=== PATIENT | female | born 1995 | race Caucasian/White ===

== ENCOUNTER 2025-08-08 01:57 | Emergency (ER) | payer MEDICAID, OTHER ==
[~2025-08-08] VITALS: Ht 165.1 cm; Wt 81.8 kg
[2025-08-08 02:13] VITALS: TEMP 98.3
--- NOTE | 2025-08-08 03:00 | Physician Documentation ---
History of Present Illness ~ Chief Complaint: 5150 Stated Complaint: 5150 Time Seen by MD: 02:47 HPI 29-year-old female presenting by police on a 5150 hold Per police, the patient was walking in the middle of the road, possibly making thoughts of self-harm. She was possibly intoxicated. Here in the ED, the patient is yelling and poorly cooperative. She does admit to having some alcohol tonight. She denies any drug use. She denies any suicidal ideation or attempt. She is homeless. She otherwise does not cooperate with history questions. Medication Reconciliation Allergies: Coded Allergies: Sulfa (Sulfonamide Antibiotics) (Unverified Allergy, Unknown, 12/13/15) Past Medical History Past Medical History: Asthma Alcohol Use: None Drug Use: none Review of Systems Unable to obtain complete ROS: other (The patient does not cooperate, possibly intoxicated) Physical Exam Vital Signs: Temperature: 98.3, Source: Temporal, Heart Rate: 125, Respiratory Rate: 20, BP: 158/102, Pulse Oximetry: 97, Weight: 81.820 Oxygen Flow Rate: 0 Physical Exam General: This is a young female, with a labile affect, yelling intermittently HEENT: Atraumatic, tearful, oropharynx is moist Heart: Tachycardic, appears regular Lungs: normal work of breathing, normal oxygen saturation on room air Neuro: Alert and oriented Psychiatric: Labile affect, intermittently yelling, denies suicidal ideation Progress Results/Orders Results/Orders Orders - LARS NEWSOME MD Med Rec (08/08/25 03:02) 1799.11 (08/08/25 03:02) Close Observation Level (08/08/25 03:02) Covid19 Binax Poc Result Entry (08/08/25 03:02) Substance Use Navigator (08/08/25 03:02) Completed Orders - LARS NEWSOME MD Cbc/Diff (08/08/25 03:02) Urinalysis (08/08/25 03:02) Hcg, Ur Ql (08/08/25 03:02) Drug Screen, Urine (08/08/25 03:02) Ethanol (08/08/25 03:02) TSH (08/08/25 03:02) BMP (08/08/25 03:02) Regular Diet (08/08/25 Breakfast) Diphenhydramine Inj (Benadryl Inj.) (08/08/25 03:02) Midazolam 1 Mg/Ml 2ml Inj. (Versed 1 Mg/ (08/08/25 03:02) Haloperidol Lact. (Haldol) (08/08/25 03:02) Midazolam 1 Mg/Ml 2ml Inj. (Versed 1 Mg/ (08/08/25 03:07) Store Meds In Pharmacy (Store Meds In Ph (08/08/25 06:50) Vital Signs 08/08/25 08/08/25 08/08/25 08/08/25 02:13 03:19 05:34 11:09 Temp 98.3 Pulse 125 64 Resp 20 22 20 18 B/P (MAP) 158/102 105/79 (88) Pulse Ox 97 94 O2 Flow Rate 0 0 08/08/25 13:48 Pulse 76 Resp 18 B/P (MAP) 114/75 Pulse Ox 94 Laboratory Tests Test 08/08/25 02:09 08/08/25 02:18 08/08/25 02:24 White Blood Count 9.2 Red Blood Count 4.64 Hemoglobin 14.4 Hematocrit 42.8 Mean Corpuscular Volume 92.1 Mean Corpuscular Hemoglobin 30.9 Mean Corpuscular Hemoglobin Concent 33.6 Red Cell Distribution Width 14.7 H Platelet Count 388 Mean Platelet Volume 7.1 L Neutrophils (%) (Auto) 66.4 Lymphocytes (%) (Auto) 25.3 Monocytes (%) (Auto) 5.0 Eosinophils (%) (Auto) 2.6 Basophils (%) (Auto) 0.7 Neutrophils # (Auto) 6.1 Lymphocytes # (Auto) 2.3 Monocytes # (Auto) 0.5 Eosinophils # (Auto) 0.2 Basophils # (Auto) 0.1 CBC Comment Sodium Level 145 Potassium Level 3.5 Chloride Level 109 H Carbon Dioxide Level 23.2 L Anion Gap 13 Blood Urea Nitrogen 10 Creatinine 0.86 Estimated GFR/1.73 m2 77 BUN/Creatinine Ratio 11.6 Glucose Level 99 Calcium Level 9.0 Albumin 4.3 Thyroid Stimulating Hormone (TSH) 1.95 Chemistry Comments Ethyl Alcohol Level 204 H SARS-CoV-2 Antigen (Rapid) Negative Urine Specimen Description Voided Urine Color Yellow Urine Clarity Clear Urine pH 5.5 Urine Specific Doran <=1.005 Urine Protein Negative Urine Glucose (UA) Negative Urine Ketones Negative Urine Occult Blood Negative Urine Nitrite Negative Urine Bilirubin Negative Urine Urobilinogen 0.2 Urine Leukocyte Esterase Negative Volume Urine Centrifuged 10 ml Urine HCG, Qualitative Negative Urine Comment Urine Opiates Screen Negative Urine Methadone Screen Negative Urine Fentanyl Screen Negative Urine Barbiturates Screen Negative Urine Phencyclidine Screen Negative Urine Amphetamines Screen Negative Urine Benzodiazepines Screen Negative Urine Cocaine Screen Negative Urine Cannabinoids Screen Positive Drug Screen Comment Re-Evaluation Re-Evaluation : Re-Evaluation Time: 13:19 Progress Pt has been evaluated by the mental health team. She was originally making suicidal statements while intoxicated but by their evaluation she no longer is suicidal and is safe for discharge from a mental health standpoint. She is being connected to various mental health services as an outpatient, including rehab through [facility] Medical Decision Making Additional information obtaine: old records Findings Reviewed previous ER visits. No history of psychiatric illness in the chart Differential Dx:Considerations: Include: Alcohol abuse, Anxiety, Bipolar disorder, Depression, Substance abuse, Suicidal Assessment The patient presents on a 5150 hold, with possible intoxication and suicidal gesture. At time of my evaluation, she is somewhat agitated and upset, does not cooperate with much of my history or exam. She attempted to elope multiple times. Eventually she was given IM medications for agitated delirium, after which she did calm down and was more cooperative and then finally slept. Mental screening labs are unremarkable except for a significantly elevated alcohol level as suspected. No evidence of a dangerous medical or surgical emergency at this time. The patient is medically cleared for mental health evaluation once she is sober. Departure Time of Disposition: 13:20 Disposition: 01 HOME / SELF CARE / HOMELESS Impression: Primary Impression: Agitation Additional Impression: Alcoholic intoxication Qualified Codes: F10.920 - Alcohol use, unspecified with intoxication, un complicated Condition: Improved Discharge Instructions: Alcohol Intoxication Additional Instructions: Please follow any recommendations given to you by the mental health team. Return to the emergency department if you feel suicidal or any other concerns. Referrals: NO PRIMARY CARE PROVIDER (PCP) Education Educated: Patient Educated regarding: need for follow up Signature Scribe Signature: na Attestation: LARS Machado MD Aug 08, 2025 03:00 BJ ANTHONY MD Aug 08, 2025 13:20
[2025-08-08] MEDS ORDERED: midazolam 1 mg/ML 2ml injection IV STA (03:02)
[2025-08-08 03:16] LABS: LEUKOCYTE ESTERASE ,URINE NEGATIVE (Neg); NITRITES, URINE NEGATIVE (Neg); OCCULT BLOOD,URINE NEGATIVE (Neg)
[2025-08-08 03:17] LABS: URINE HCG NEGATIVE (NEG)
[2025-08-08 03:18] LABS: UA COLLECTION TYPE VOIDED
[2025-08-08] MEDS: haloperidol lactate 5mg/ml inj IM STA (03:19)
[2025-08-08] MEDS: midazolam 1 mg/ML 2ml injection IM STA (03:19)
[2025-08-08 03:38] LABS: URINE AMPHETAMINE SCREEN NEGATIVE (Neg); URINE BARBITUATE SCREEN NEGATIVE (Neg); URINE BENZODIAZEPINES SCREEN NEGATIVE (Neg); URINE CANNABINOID SCREEN POSITIVE (Neg); URINE COCAINE SCREEN NEGATIVE (Neg); URINE METHADONE SCREEN NEGATIVE (Neg); URINE OPIATE SCREEN NEGATIVE (Neg); URINE PHENCYCLIDINE SCREEN NEGATIVE (Neg)
[2025-08-08 04:43] LABS: MEAN PLATELET VOLUME 7.1 FL (7.4-10.4); RED CELL DISTRIBUTION WIDTH 14.7 % (11.5-14.5)
[2025-08-08 04:59] LABS: CREATININE 0.86 MG/DL (0.40-0.90); ETHANOL 204 MG/DL (<10); TOTAL CARBON DIOXIDE 23.2 MMOL/L (24-32); eCRCL 86 ML/MIN; eGFR 77 ML/MIN
[2025-08-08 13:48] VITALS: BP 114/75; PULSE 76; RESP 18; O2SAT 94
== END 2025-08-08 13:51 | disposition home or self-care (01) ==
LOC: ER 01:57
DX: F10.129 Alcohol abuse with intoxication, unspecified (principal); R41.0 Disorientation, unspecified; J45.909 Unspecified asthma, uncomplicated; Z88.2 Allergy status to sulfonamides; Z59.00 Homelessness unspecified; Y90.9 Presence of alcohol in blood, level not specified; Z20.822 Contact with and (suspected) exposure to COVID-19
CPT/HCPCS: 36415; 80048; 80305; 80320; 81003; 81025; 84443; 85025; 87811; 96372; 99285; J1200; J1630; J2250

== ENCOUNTER 2025-08-16 01:46 | Emergency (ER) | payer MEDICAID ==
[~2025-08-16] VITALS: Ht 157.5 cm; Wt 73.2 kg
--- NOTE | 2025-08-16 02:33 | Physician Documentation ---
History of Present Illness ~ Chief Complaint: Laceration Stated Complaint: FINGER LAC Time Seen by MD: 02:29 HPI Patient presents to the emergency room with a cut to the tip of her left index finger. She has chopping onions when it occurred. Tetanus reported to be up-to-date. Tetanus Within 5 Years: No Medication Reconciliation Allergies: Coded Allergies: Sulfa (Sulfonamide Antibiotics) (Unverified Allergy, Unknown, 12/13/15) nitrofurantoin (Verified Allergy, Unknown, 08/16/25) sulfamethoxazole (Verified Allergy, Unknown, 08/16/25) trimethoprim (Verified Allergy, Unknown, 08/16/25) Past Medical History Past Medical History: Asthma Alcohol Use: None Drug Use: none Review of Systems ROS All review of systems negative except as per HPI Physical Exam Vital Signs: Temperature: 98.0, Heart Rate: 111, Respiratory Rate: 16, BP: 122/68, Pulse Oximetry: 97, Weight: 73.230 Oxygen Flow Rate: 0 Physical Exam General: Patient is awake, alert, oriented x4 in no acute distress Head: Normocephalic and atraumatic. Eyes: Conjunctival normal. EOMI. PERRL. ENT: Mucous membranes moist. Neck: Supple, trachea is midline. Chest: Clear to auscultation bilaterally without rales, rhonchi, or wheezes. There is no accessory muscle use or retractions. Cardiac: RRR without murmurs, gallops, or rubs. Extremities: Tip of 2nd digit of left finger has a cut with no active bleeding. Neurovascularly intact. All movements intact Progress Results/Orders Results/Orders Vital Signs 08/16/25 01:51 Temp 98.0 Pulse 111 Resp 16 B/P (MAP) 122/68 Pulse Ox 97 O2 Flow Rate 0 Medical Decision Making Additional information obtaine: old records Findings Patient presented to the emergency room with a cut on her finger. Tetanus reported to be up-to-date. Wound care provided. I do not feel patient would benefit from a stitch Differential Dx:Considerations: Include: Abrasion, Avulsion, Contusion, Laceration, Fracture, Hematoma, Neurovascular injury, Retained foreign body, Other Departure Disposition: 01 HOME / SELF CARE / HOMELESS Impression: Primary Impression: Laceration Condition: Stable Discharge Instructions: Laceration Care, Adult, [id number] Referrals: NO PRIMARY CARE PROVIDER (PCP) Signature Scribe Signature: No scribe Attestation: The note accurately reflects work and decisions made by me.Raul Newman MD 08/16/25 02:33 RAUL NEWMAN MD Aug 16, 2025 02:33
[2025-08-16] MEDS: bacitracin 15gm ointment TP ONE (02:39)
[2025-08-16 02:56] VITALS: BP 120/66; PULSE 99; RESP 18; TEMP 98.6; O2SAT 99
== END 2025-08-16 02:57 | disposition home or self-care (01) ==
LOC: ER 01:47
DX: S61.211A Laceration without foreign body of left index finger without damage to nail, initial encounter (principal); J45.909 Unspecified asthma, uncomplicated; Z88.1 Allergy status to other antibiotic agents; Z88.2 Allergy status to sulfonamides; X58.XXXA Exposure to other specified factors, initial encounter; Y93.89 Activity, other specified; Y92.89 Other specified places as the place of occurrence of the external cause; Y99.8 Other external cause status
CPT/HCPCS: 99282

== ENCOUNTER 2025-08-23 07:40 | Emergency (ER) | payer MEDICAID ==
[~2025-08-23] VITALS: Ht 157.5 cm; Wt 70.3 kg
--- NOTE | 2025-08-23 08:09 | Physician Documentation ---
History of Present Illness General Chief Complaint: Flu Symptoms Stated Complaint: FLU SYMPTOMS Time Seen by MD: 08:09 History of Present Illness Initial Comments 29-year-old female presents to the emergency room with a complaint of nausea and vomiting for the last 24 hours and a week's worth of cough cold and congestion. Patient states she has asthma. The patient states she was seen at an outside institution and they tried to start an IV but were unsuccessful and so she came to our emergency department because she has been vomiting over the last 24 hours. Patient states she has some nausea she denies any significant abdominal pain. Patient denies any fevers or chills. The patient's symptoms are moderate and persistent Medication Reconciliation Allergies: Coded Allergies: Sulfa (Sulfonamide Antibiotics) (Unverified Allergy, Unknown, 08/23/25) nitrofurantoin (Verified Allergy, Unknown, 08/23/25) sulfamethoxazole (Verified Allergy, Unknown, 08/23/25) trimethoprim (Verified Allergy, Unknown, 08/23/25) Scheduled Azithromycin (Zithromax), 1 TAB PO DAILY Scheduled PRN ONDANSETRON ODT 4mg tablet (Ondansetron Odt), 1 TABLET PO Q6H PRN for nause a/vomiting Past Medical History Past Medical History: Asthma Alcohol Use: None Drug Use: none Review of Systems All Other Systems at this time: Reviewed and Negative Physical Exam Physical Exam Vital Signs: Temperature: 98.1, Source: Temporal, Heart Rate: 105, Respiratory Rate: 20, BP: 147/87, Pulse Oximetry: 97, Weight: 70.300 Oxygen Flow Rate: 0 Physical Exam VITALS: Reviewed and as above. GENERAL: Alert, no apparent distress. HEENT: Normocephalic, atraumatic, PERRL, EOMI, dry mucosa, no erythema RESPIRATORY: bilateral expiratory wheezes no respiratory distress. CHEST: No accessory muscle use, no retractions CV: Regular rate, rhythm, no edema, no murmur, No: JVD GI: Soft, non-tender, bowels sounds present, no rebound, guarding, or rigidity BACK: No CVA tenderness, or swelling MUSCULOSKELETAL: No deformities, no edema SKIN: Warm and dry, no rash NEURO: Oriented x4, No motor or sensory deficit PSYCH: Normal mood and affect, no agitation Progress Results/Orders Results/Orders Completed Orders - OHLFS,RADHA Orellana MD Normal Saline 1000ml (0.9% Sodium Chlori (08/23/25 08:55) Ondansetron Inj. (Zofran 4mg/2ml Vial) (08/23/25 09:45) Vital Signs 08/23/25 08/23/25 07:42 10:43 Temp 98.1 98.1 Pulse 105 86 Resp 20 16 B/P (MAP) 147/87 125/85 Pulse Ox 97 98 O2 Flow Rate 0 Medical Decision Making Additional information obtaine: old records Findings 29-year-old female complains of nausea and vomiting as well as cough and congestion the patient will states that they were trying to hydrate her at the other institution and town and were unable to get an IV in her she is requesting IV fluids the patient was given IV fluids here in the emergency room she is not hypoxic her lungs are fairly clear she will be given an antibiotic and some Zofran and she will be discharged. Her pulse oximetry was interpreted as normal and adequate. Prior hospitalizations has been reviewed Differential Diagnosis Gastroenteritis, bronchitis, influenza, COVID Departure Disposition: HOME / SELF CARE / HOMELESS Impression: Primary Impression: Bronchitis Additional Impression: Dehydration Discharge Instructions: Acute Bronchitis, Adult, [id number] Referrals: NO PRIMARY CARE PROVIDER (PCP) Prescriptions ONDANSETRON ODT 4mg tablet (ONDANSETRON ODT) 4 Mg Tab.rapdis 1 TABLET PO Q6H PRN for nausea/vomiting, #12 TABLET Prov: RADHA PRADO MD 08/23/25 Azithromycin (Zithromax) 250 Mg Tablet 1 TAB PO DAILY, #6 TAB azithromycin z pack as directed in packaging Prov: RADHA PRADO MD 08/23/25 Signature Scribe Signature: No scribe Attestation: The note accurately reflects work and decisions made by me.Radha Prado MD 08/24/25 06:44 RADHA PRADO MD Aug 23, 2025 08:09
[2025-08-23] MEDS: normal saline 1000ML IV soln IVB ONE (09:15)
[2025-08-23] MEDS ORDERED: AZIT-164 PO (09:44)
[2025-08-23] MEDS ORDERED: ONDA-243 PO (09:44)
[2025-08-23] MEDS: ondansetron/PF 4mg/2ml inj IV ONE (09:48)
[2025-08-23 10:43] VITALS: BP 125/85; PULSE 86; RESP 16; TEMP 98.1; O2SAT 98
== END 2025-08-23 10:47 | disposition home or self-care (01) ==
LOC: ER 07:41
DX: J40 Bronchitis, not specified as acute or chronic (principal); E86.0 Dehydration; Z88.2 Allergy status to sulfonamides; Z88.8 Allergy status to other drugs, medicaments and biological substances
CPT/HCPCS: 96361; 96374; 99283; J2405; J7030

== ENCOUNTER 2025-08-24 20:19 | Emergency (ER) | payer MEDICAID ==
[~2025-08-24] VITALS: Ht 157.5 cm; Wt 69.2 kg
[~2025-08-24 20:19] MED LIST: AZIT-164 PO; ONDA-243 PO
--- NOTE | 2025-08-24 23:40 | Physician Documentation ---
History of Present Illness ~ General Chief Complaint: Multiple Medical Complaints Stated Complaint: MULTIPLE MED COMPLAINTS Time Seen by MD: 23:31 History of Present Illness Initial Comments Patient presents to the emergency room with multiple medical complaints ranging from finger pain/infection to cough to ovarian pain. She was seen recently at [facility] and diagnosed with laryngitis. She denies any throat pain. She was seen here 3 times in the past two weeks for different complaints. I did see patient proximally week and a half ago for her cut finger and she states the pain associated with her cut finger has worsened with associated swelling. Medication Reconciliation Allergies: Coded Allergies: Sulfa (Sulfonamide Antibiotics) (Unverified Allergy, Unknown, 08/24/25) nitrofurantoin (Verified Allergy, Unknown, 08/24/25) sulfamethoxazole (Verified Allergy, Unknown, 08/24/25) trimethoprim (Verified Allergy, Unknown, 08/24/25) Scheduled Azithromycin (Zithromax), 1 TAB PO DAILY Scheduled PRN ONDANSETRON ODT 4mg tablet (Ondansetron Odt), 1 TABLET PO Q6H PRN for nausea/vomiting Past Medical History Past Medical History: Asthma Alcohol Use: None Drug Use: none Physical Exam Physical Exam Vital Signs: Temperature: 98.5, Source: Temporal, Heart Rate: 106, Respiratory Rate: 14, BP: 152/100, Pulse Oximetry: 98, Weight: 69.200 Oxygen Flow Rate: 0 Progress Results/Orders Results/Orders Orders - RAUL NEWMAN MD Chest,Single View (08/24/25 23:50) Ultrasound Pelvis W/Orwo Dplx (08/25/25 ) Urinalysis, Cult If Indicated (08/25/25 00:20) Drug Screen, Urine (08/25/25 00:20) Hcg, Ur Ql (08/25/25 00:20) Completed Orders - RAUL NEWMAN MD Chest,Single View (08/24/25 23:50) Cephalexin Capsule (Keflex Capsule) (08/24/25 23:45) Cbc/Diff (08/24/25 23:49) BMP (08/24/25 23:49) Ultrasound Pelvis W/Orwo Dplx (08/25/25 ) Medications Received in ER Medications (Trade) Dose Ordered Sig/Salvador Route PRN Reason Start Time Stop Time Status Last Admin Dose Admin (Keflex capsule) 500 mg ONCE ONCE PO 08/24/25 23:45 08/24/25 23:46 DC 08/24/25 23:51 500 MG Vital Signs 08/24/25 08/24/25 08/24/25 08/24/25 20:21 23:02 23:50 23:50 Temp 98.5 Pulse 106 81 Resp 16 14 16 18 B/P (MAP) 152/100 134/80 (98) Pulse Ox 98 99 O2 Flow Rate 0 0 Laboratory Tests Test 08/25/25 00:04 08/25/25 00:46 White Blood Count 11.1 H Red Blood Count 4.81 Hemoglobin 15.0 Hematocrit 43.9 Mean Corpuscular Volume 91.2 Mean Corpuscular Hemoglobin 31.1 H Mean Corpuscular Hemoglobin Concent 34.1 Red Cell Distribution Width 15.2 H Platelet Count 346 Mean Platelet Volume 7.1 L Neutrophils (%) (Auto) 75.6 H Lymphocytes (%) (Auto) 16.9 L Monocytes (%) (Auto) 5.3 Eosinophils (%) (Auto) 1.7 Basophils (%) (Auto) 0.5 Neutrophils # (Auto) 8.4 H Lymphocytes # (Auto) 1.9 Monocytes # (Auto) 0.6 Eosinophils # (Auto) 0.2 Basophils # (Auto) 0.1 CBC Comment Sodium Level 138 Potassium Level 3.7 Chloride Level 102 Carbon Dioxide Level 27.0 Anion Gap 9 Blood Urea Nitrogen 14 Creatinine 0.71 Estimated GFR/1.73 m2 > 90 BUN/Creatinine Ratio 19.7 Glucose Level 92 Calcium Level 9.2 Albumin 4.3 Chemistry Comments Urine HCG, Qualitative Negative Urine Comment Drug Screen Comment Medical Decision Making Additional information obtaine: old records Findings Patient presents to the emergency room with an infection on her finger multiple other complaints. We have begun antibiotics for her finger. All other findings reassuring. Differential Diagnosis k Departure Disposition: HOME / SELF CARE / HOMELESS Impression: Primary Impression: Paronychia of finger Condition: Stable Discharge Instructions: Fingertip Infection Additional Instructions: All imaging and labs were reassuring today urine clear, ovary that has just fine, chest x-ray clear and labs are reassuring Referrals: NO PRIMARY CARE PROVIDER (PCP) Prescriptions Cephalexin*Monohydrate* (Keflex*) 500 Mg Capsule 1 CAP PO Q12H for 10 Days, #20 CAP Prov: RAUL NEWMAN MD 08/25/25 Signature Scribe Signature: No scribe Attestation: The note accurately reflects work and decisions made by me.Raul Newman MD 08/25/25 01:28 RAUL NEWMAN MD Aug 24, 2025 23:40
--- NOTE | 2025-08-24 23:59 | RADIOLOGY REPORT ---
CHEST RADIOGRAPH Indication: cough Technique: Single frontal view of the chest was obtained COMPARISON: None FINDINGS: Lines and Tubes: None Lungs: Clear Pleura: No effusion. No pneumothorax. Cardiomediastinal contours: Unremarkable Bones: Unremarkable IMPRESSION: 1. No acute disease.
[2025-08-25 00:28] LABS: CREATININE 0.71 MG/DL (0.40-0.90); TOTAL CARBON DIOXIDE 27.0 MMOL/L (24-32); eCRCL 92 ML/MIN; eGFR > 90 ML/MIN
[2025-08-25 00:51] LABS: MEAN PLATELET VOLUME 7.1 FL (7.4-10.4); RED CELL DISTRIBUTION WIDTH 15.2 % (11.5-14.5)
[2025-08-25 01:16] LABS: URINE HCG NEGATIVE (NEG)
[2025-08-25 01:17] LABS: LEUKOCYTE ESTERASE ,URINE NEGATIVE (Neg); NITRITES, URINE NEGATIVE (Neg); OCCULT BLOOD,URINE NEGATIVE (Neg)
--- NOTE | 2025-08-25 01:18 | RADIOLOGY REPORT ---
INDICATION: right adenexal pain TECHNIQUE: Multiple real-time grayscale transabdominal sonographic images along with color and duplex Doppler of the uterus and ovaries were obtained. COMPARISON: None FINDINGS: The uterus measures 7.7 x 4.9 x 3.4 cm. The endometrial stripe measures 0.4 cm. Right ovary measures 3.4 x 3.4 x 2.6 cm with normal Doppler color flow. Left ovary measures 3.9 x 3.6 x 3.1 cm with normal Doppler color flow with a dominant follicle noted, measuring 2.8 x 2.6 x 2.0 cm. No evidence of pelvic free fluid. IMPRESSION: 1. Grossly unremarkable pelvic ultrasound.
[2025-08-25 01:26] LABS: UA COLLECTION TYPE NON-SPECIFIED; URINE AMPHETAMINE SCREEN NEGATIVE (Neg); URINE BARBITUATE SCREEN NEGATIVE (Neg); URINE BENZODIAZEPINES SCREEN NEGATIVE (Neg); URINE CANNABINOID SCREEN POSITIVE (Neg); URINE COCAINE SCREEN NEGATIVE (Neg); URINE METHADONE SCREEN NEGATIVE (Neg); URINE OPIATE SCREEN NEGATIVE (Neg); URINE PHENCYCLIDINE SCREEN NEGATIVE (Neg)
[2025-08-25] MEDS ORDERED: CEPH-585 PO (01:27)
[2025-08-25 01:34] VITALS: BP 132/78; PULSE 80; RESP 18; TEMP 98.6; O2SAT 99
[2025-08-26] MEDS ORDERED: DOXY-1 PO (11:38)
[2025-08-26] MEDS ORDERED: METR-159 PO (11:45)
[2025-08-26] MEDS ORDERED: FLUC150T22 PO (11:45)
== END 2025-08-25 01:35 | disposition home or self-care (01) ==
LOC: ER 20:20
DX: L03.012 Cellulitis of left finger (principal); J45.909 Unspecified asthma, uncomplicated; Z88.2 Allergy status to sulfonamides; Z88.8 Allergy status to other drugs, medicaments and biological substances; Z79.899 Other long term (current) drug therapy
CPT/HCPCS: 36415; 71045; 76856; 80048; 80305; 81003; 81025; 85025; 93976; 99284

== ENCOUNTER 2025-08-25 21:00 | Emergency (ER) | payer MEDICAID ==
[~2025-08-25] VITALS: Ht 157.5 cm; Wt 69.2 kg
[~2025-08-25 21:00] MED LIST changes: +CEPH-585 PO
[2025-08-25 21:03] VITALS: BP 160/115; PULSE 108; RESP 18; TEMP 96.3; O2SAT 98
--- NOTE | 2025-08-25 22:41 | Physician Documentation ---
History of Present Illness ~ Chief Complaint: See Chief Complaint Stated Complaint: [facility] This is a 29-year-old female who presented to the emergency department with multiple concerns, patient and a clear on what is her primary concern though includes pain to her finger and complaints about [facility] not providing her ultrasound results from a possible , patient reports it was seen for abdominal pain however is reporting that was painful yesterday and not today. In the middle of clarifying her chief complaint patient reports I do not want to be seen anymore I am going to [facility]. Tetanus within 5 years: No Medication Reconciliation Allergies: Coded Allergies: Sulfa (Sulfonamide Antibiotics) (Unverified Allergy, Unknown, 08/26/25) nitrofurantoin (Verified Allergy, Unknown, 08/26/25) sulfamethoxazole (Verified Allergy, Unknown, 08/26/25) trimethoprim (Verified Allergy, Unknown, 08/26/25) Scheduled Azithromycin (Zithromax), 1 TAB PO DAILY Cephalexin*Monohydrate* (Keflex*), 1 CAP PO Q12H Doxycycline Hyclate (Doxycycline Hyclate), 1 CAP PO Q12H Fluconazole (Diflucan), 1 TAB PO ONCE Metronidazole* (Flagyl*), 1 TAB PO Q12H Scheduled PRN ONDANSETRON ODT 4mg tablet (Ondansetron Odt), 1 TABLET PO Q6H PRN for nausea/vomiting Past Medical History Past Medical History: Asthma Alcohol Use: None Drug Use: none Review of Systems ROS As stated above in the HPI, otherwise all systems are reviewed and negative. Physical Exam Vital Signs: Temperature: 96.3, Source: Temporal, Heart Rate: 108, Respiratory Rate: 18, BP: 160/115, Pulse Oximetry: 98, Weight: 69.200 Physical Exam VITALS: Reviewed and as above. GENERAL: Alert, nontoxic appearing, no apparent distress. RESPIRATORY: No increased work of breathing, no respiratory distress, speaking in full clear sentences MUSCULOSKELETAL: No swelling to digits of the either hand, no visible injuries to digits of either hand Progress Results/Orders Results/Orders Vital Signs 08/25/25 21:03 Temp 96.3 Pulse 108 Resp 18 B/P (MAP) 160/115 Pulse Ox 98 Medical Decision Making Additional information obtaine: N/A Findings MSE performed in triage, I attempted to clarify the patient's chief complaint however she became upset and reported I do not want to be seen anymore I am going to [facility] patient subsequently eloped from lobby. Hemodynamically stable and has no clear chief complaint, I have no reason to believe an emergent medical condition at this point. General Diff Dx:Considerations: Include: Abrasion, Laceration, Neurovascular injury, Sprain Shoulder Diff Dx:Consideration: Unlikely: AC separation, Adhesive capsulitis, Arthritis, Bicipital tendonitis, Calcific tendonitis, Cervical disc disease, Contusion, Dislocation, Fracture-humerus, Fracture-scapula, Fracture-clavicle, GB disease, Hematoma, Impingement syndrome, Myocardial infarction, Neurovascular injury, Open fracture-humerus, Open fracture-scapula, Open fracture-clavicle, Rotator cuff injury, SC dislocatoin, Sprain, Subacromial bursitis, Other Elbow Diff Dx:Considerations: Unlikely: Abrasion, Arthritis, Contustion, DJD, Fracture-humerus, Fracture-radial head, Fracture-radius, Fracture-ulna, Gout, Hematoma, Laceration, Neurovascular injury, Olecranon bursitis, Open fracture, Osteomyelitis, Radial head subluxation, Rheumatoid arthritis, Septic, Sprain, Ulcer, Other Wrist Diff Dx:Considerations: Unlikely: Abrasion, Arthritis, DJD, Gout, Rheumatoid, Septic, Carpal tunnel snydrome, Contusion, Dislocation, Fracture- carpal, Fracture-radius, Fracture-ulna, Ganglion, Laceration, Neurovascular injury, Open fracture, Strain, Other Hand Diff Dx:Considerations: Include: Abrasion, Felon, Fracture-carpal, Fracture-metacarpal, Fracture-phalynx, Gout, Herpetic alfa, Neurovascular injury, Paronychia, Septic, Sprain, Tenosynovitis, Cellulitis Finger Diff Dx:Considerations: Include: Abrasion, Cellulitis, Contusion, Dislocation, Fracture, Hematoma, Laceration, Neurovascular injury, Open fracture Departure Disposition: LEFT AWOL/ELOPED Impression: Primary Impression: Finger pain Qualified Codes: M79.646 - Pain in unspecified finger(s) Referrals: NO PRIMARY CARE PROVIDER (PCP) Signature Scribe Signature: No scribe Attestation: The note accurately reflects work and decisions made by me.TONYA Liang 08/25/25 22:41 NEERU HAYNES Aug 25, 2025 22:41
[2025-08-26] MEDS ORDERED: DOXY-1 PO (11:38)
[2025-08-26] MEDS ORDERED: METR-159 PO (11:45)
[2025-08-26] MEDS ORDERED: FLUC150T22 PO (11:45)
== END 2025-08-25 22:50 | disposition left against medical advice (07) ==
LOC: ER 21:00
DX: M79.646 Pain in unspecified finger(s) (principal); Z88.2 Allergy status to sulfonamides; Z88.1 Allergy status to other antibiotic agents; Z79.899 Other long term (current) drug therapy
CPT/HCPCS: 99282; 99283

== ENCOUNTER 2025-08-26 00:47 | Emergency (ER) | payer MEDICAID ==
[~2025-08-26] VITALS: Ht 157.5 cm; Wt 69.2 kg
[2025-08-26 00:58] VITALS: BP 160/115; PULSE 108; RESP 15; TEMP 96.3; O2SAT 98
[2025-08-26] MEDS ORDERED: DOXY-1 PO (11:38)
[2025-08-26] MEDS ORDERED: METR-159 PO (11:45)
[2025-08-26] MEDS ORDERED: FLUC150T22 PO (11:45)
== END 2025-08-26 02:28 | disposition left against medical advice (07) ==
LOC: ER 00:47
DX: Z00.00 Encounter for general adult medical examination without abnormal findings (principal)
CPT/HCPCS: 99281

== ENCOUNTER 2025-08-26 08:56 | Emergency (ER) | payer MEDICAID ==
[~2025-08-26] VITALS: Ht 157.5 cm; Wt 66.3 kg
[2025-08-26 09:26] VITALS: TEMP 89
--- NOTE | 2025-08-26 10:04 | Physician Documentation ---
History of Present Illness ~ General Chief Complaint: See Chief Complaint Stated Complaint: MULTIPLE MED COMPLAINTS Time Seen by MD: 09:42 Mode of Arrival: POV, Ambulatory History of Present Illness Initial Comments This is a 29 year old female who presents to the emergency department with multiple different complaints. She reports a history of atrial fib with tachycardia, chest pain, shortness of breath, vaginal discharge, pelvic pain, concerns for , and concerns that her right middle finger is not healing appropriately after a laceration for which she was seen in his emergency department on 08/16/2025. The patient has also been seen on 08/24/2025 was given Keflex and had a negative HCG and normal labs at that time, she was seen 08/25/2025 at which point she left before receiving medical treatment, she was also here earlier today 08/26/2025 and left without being seen. Medication Reconciliation Allergies: Coded Allergies: Sulfa (Sulfonamide Antibiotics) (Unverified Allergy, Unknown, 08/26/25) nitrofurantoin (Verified Allergy, Unknown, 08/26/25) sulfamethoxazole (Verified Allergy, Unknown, 08/26/25) trimethoprim (Verified Allergy, Unknown, 08/26/25) Scheduled Azithromycin (Zithromax), 1 TAB PO DAILY Cephalexin*Monohydrate* (Keflex*), 1 CAP PO Q12H Doxycycline Hyclate (Doxycycline Hyclate), 1 CAP PO Q12H Scheduled PRN ONDANSETRON ODT 4mg tablet (Ondansetron Odt), 1 TABLET PO Q6H PRN for nausea/vomiting Past Medical History Past Medical History: Asthma Alcohol Use: None Drug Use: none Review of Systems ROS As stated above in the HPI, otherwise all systems are reviewed and negative. Physical Exam Physical Exam Vital Signs: Temperature: 89.0, Heart Rate: 122, Respiratory Rate: 16, BP: 156/121, Pulse Oximetry: 100, Weight: 66.300 Oxygen Flow Rate: 0 Physical Exam General: Alert, no apparent distress. HEENT: PERRL, EOMI, no injection, moist mucous membranes. Neck: Full range of motion. Respiratory: Lungs clear, no respiratory distress. Chest: No accessory muscle use. Cardiovascular: Regular rate and rhythm, no murmurs. Gastrointestinal: Soft, nontender, nondistended. Bowels sounds present. Extremities: Right middle finger with erythema around finger nail. Does not appear actively infected. Neurologic: Oriented x4. Psychiatric: Normal mood and affect. Skin: Normal color, warm and dry. No edema, no ecchymosis. Pelvic Exam: Normal external female genitalia Right adnexal tenderness. Some kruger vaginal discharge noted in vault. Some white cottage-cheesy discharge also present. Progress Results/Orders Results/Orders Orders - SUSANNE LEHMAN PYROTECHNICIAN Ultrasound Pelvis W/Orwo Dplx (08/26/25 09:54) Chlam/Gc Amp Ur (08/26/25 10:04) Summer Prep (Fungal Smear) (08/26/25 10:04) Syphilis Screen Poc (08/26/25 10:04) Ceftriaxone 500 Im W/Lidocaine (Rocephin (08/26/25 11:40) Completed Orders - SUSANNE LEHMAN PYROTECHNICIAN Cbc/Diff (08/26/25 09:54) Lipase (08/26/25 09:54) Hcg, Ur Ql (08/26/25 09:54) Drug Screen, Urine (08/26/25 09:54) BMP (08/26/25 09:54) Hs Troponin I W Calculations (08/26/25 09:54) Electrocardiogram (08/26/25 09:54) Ultrasound Pelvis W/Orwo Dplx (08/26/25 09:54) Liver Panel (08/26/25 10:04) Ua W/Microscopic, Cult If Ind (08/26/25 09:57) Vital Signs 08/26/25 08/26/25 09:26 09:59 Temp 89.0 Pulse 122 Resp 16 16 B/P (MAP) 156/121 Pulse Ox 100 O2 Flow Rate 0 Laboratory Tests Test 08/26/25 09:57 08/26/25 10:37 Urine Specimen Description Non-specified Urine Color Yellow Urine Clarity Clear Urine pH 6.0 Urine Specific [place] >=1.030 Urine Protein Trace Urine Glucose (UA) Negative Urine Ketones >=80 Urine Occult Blood Negative Urine Nitrite Negative Urine Bilirubin Moderate Urine Urobilinogen 0.2 Urine Leukocyte Esterase Negative Urine RBC 0-2 Urine WBC 0-4 Urine Squamous Epithelial Cells Few Urine Bacteria 2+ Urine Culture Indicated Not ind Volume Urine Centrifuged 10 ml Urine HCG, Qualitative Negative Urine Comment Urine Opiates Screen Negative Urine Methadone Screen Negative Urine Fentanyl Screen Negative Urine Barbiturates Screen Negative Urine Phencyclidine Screen Negative Urine Amphetamines Screen Negative Urine Benzodiazepines Screen Negative Urine Cocaine Screen Negative Urine Cannabinoids Screen Positive Drug Screen Comment White Blood Count 7.1 Red Blood Count 4.83 Hemoglobin 15.0 Hematocrit 44.3 Mean Corpuscular Volume 91.8 Mean Corpuscular Hemoglobin 31.0 Mean Corpuscular Hemoglobin Concent 33.8 Red Cell Distribution Width 15.6 H Platelet Count 288 Mean Platelet Volume 6.9 L Neutrophils (%) (Auto) 85.9 H Lymphocytes (%) (Auto) 10.1 L Monocytes (%) (Auto) 3.2 Eosinophils (%) (Auto) 0.4 Basophils (%) (Auto) 0.4 Neutrophils # (Auto) 6.1 Lymphocytes # (Auto) 0.7 L Monocytes # (Auto) 0.2 Eosinophils # (Auto) 0.0 Basophils # (Auto) 0.0 CBC Comment Sodium Level 137 Potassium Level 3.5 Chloride Level 102 Carbon Dioxide Level 23.6 L Anion Gap 11 Blood Urea Nitrogen 13 Creatinine 0.69 Estimated GFR/1.73 m2 > 90 BUN/Creatinine Ratio 18.8 Glucose Level 101 Calcium Level 8.9 Total Bilirubin 0.5 Direct Bilirubin 0.1 Aspartate Amino Transf (AST/SGOT) 45 H Alanine Aminotransferase (ALT/SGPT) 64 Alkaline Phosphatase 78 Troponin I High Sensitivity 9 Total Protein 8.0 Albumin 4.3 Globulin 3.7 Albumin/Globulin Ratio 1.2 Lipase 44 Chemistry Comments EKG/XRAY/CT/US/VASC/MRI EKG : Additional Comment 1019 EKG interpreted to show ST with rate of 100. No ectopy. No ST segment elevation. QTC 456 ms. Ultrasound : [facility] [address] [facility] [id number] ULTRASOUND Patient: MELANIE VARELA Medical Record: [id number] [facility] : 1995, Age: 29 Sex: Female Location: ER Patient Status: [facility] ER Service Date/Time: 08/26/25953 Ordering Physician: SUSANNE LEHMAN NP Exam: ULTRASOUND PELVIS W/ORWO DPLX INDICATION: pain TECHNIQUE: Multiple real-time grayscale transabdominal and TV sonographic images along with color and duplex Doppler of the uterus and ovaries were obtained. COMPARISON: US ULTRASOUND PELVIS W/ORWO DPLX on DOS: 08/25/25 FINDINGS: The uterus measures 6 x 3 x 5 cm. The endometrial stripe measures 0.8 cm. The right ovary measures 2 x 2 x 2 cm. The left ovary measures 4 x 2 x 3 cm. 2 cm left ovarian cyst. Subsequent color and duplex Doppler interrogation of the ovaries demonstrated symmetric vascular flow to both ovaries, though this does not exclude the possibility of torsion due to the dual blood supply. IMPRESSION: 1. Grossly unremarkable pelvic ultrasound. Electronically Signed by:CRUZ JUAREZ MD Date & Time: 08/26/251105 Dictated by: CRUZ JUAREZ MD Dictation date and time: 08/26/251105 Primary Care Provider: NO PRIMARY CARE PROVIDER cc: SUSANNE LEHMAN NP ~ Medical Decision Making Additional information obtaine: old records Findings Multiple visits to this ER, see HPI. Differential Diagnosis Most Likely Diagnoses: Pelvic inflammatory disease (PID) from gonorrhea or chlamydia: The combination of vaginal discharge and pelvic pain is highly suggestive of PID, which results from ascension of sexually transmitted pathogens from the lower genital tract to the uterus and/or fallopian tubes. Patients may present acutely with lower abdominal or pelvic pain and pelvic organ tenderness, though many have subtle symptoms. The absence of fever does not exclude PID, as many cases present without systemic symptoms. The chest pain and dyspnea could represent referred pain or concurrent anxiety related to the acute illness. [1] Bacterial vaginosis or vulvovaginal candidiasis: Vaginitis commonly presents with vaginal discharge and can cause pelvic discomfort. Bacterial vaginosis typically presents with thin, homogenous discharge and fishy odor, while candidiasis manifests with thick, white, curd-like discharge and pruritus. The chest symptoms would need alternative explanation or could represent concurrent conditions. [2] Trichomoniasis: This sexually transmitted infection presents with green or yellow frothy discharge and may cause pelvic pain. Speculum examination may reveal cervical erythema with petechiae. Like other vaginitis causes, this would not directly explain cardiopulmonary symptoms. [2] Endometriosis: This can present with pelvic pain (including dysmenorrhea, nonmenstrual pelvic pain, and deep dyspareunia) and may be associated with dysuria. In a study of women with surgically confirmed endometriosis, 89.3% reported at least one pelvic pain symptom. However, vaginal discharge is not a typical feature unless there is concurrent infection. [3] Panic attack: The constellation of chest pain, dyspnea, and pelvic pain could represent a panic attack, which can include palpitations, chest pain or discomfort, sensations of shortness of breath, and nausea or abdominal distress. The abrupt surge of symptoms reaching a peak within minutes is characteristic. [4] Gastroesophageal reflux disease (GERD): The chest pain could represent GERD, which characteristically presents as substernal burning sensation rising from the epigastrium toward the neck. However, this would not explain the gynecologic symptoms. [5] Most Important Not to Miss Diagnoses: Pulmonary embolism: Rule out with validated clinical decision rules (Wells score, PERC rule) to guide d-dimer testing and CT pulmonary angiography if indicated. The combination of chest pain and dyspnea raises concern for PE, particularly if there are risk factors such as recent immobilization, oral contraceptive use, or . The pelvic pain could represent concurrent pathology or referred pain from a large PE. Ectopic : Rule out with serum ?-hCG and transvaginal ultrasound. Any woman of reproductive age with pelvic pain and vaginal discharge (which could represent bleeding) requires testing to exclude ectopic , which can rupture and cause life-threatening hemorrhage. The chest pain and dyspnea could represent referred pain from hemoperitoneum or concurrent pathology. Acute coronary syndrome: Rule out with electrocardiography within 10 minutes and serial high-sensitivity troponin measurements. If initial troponin is normal, a second measurement within 1-3 hours can reliably exclude ACS with negative predictive value of approximately 99%. While less common in younger women, ACS must be excluded when chest pain is present, particularly with dyspnea. [6] Tubo-ovarian abscess (complication of PID): Rule out with pelvic ultrasound and clinical examination. This represents severe PID with abscess formation and can cause sepsis. While fever is common, its absence does not exclude the diagnosis. The chest symptoms could represent septic emboli or concurrent pathology. Departure Time of Disposition: 11:36 Impression: Primary Impression: Vaginal discharge Additional Impression: Ovarian cyst Condition: Stable Additional Instructions: No evidence of urinary tract infection. Negative urine test. Normal pelvic ultrasound although you do have a 2 cm left sided ovarian cyst. Labs overall normal. Pelvic exam done and testing sent for STIs which is pending. These results can be obtained by your primary care within the next couple days. You are being treated presumptively for STI with rocephin and doxycycline. You are also being treated presumptively for bacterial vaginosis and yeast infection. Your EKG was normal. Followup with primary care. Please return if worse. Referrals: NO PRIMARY CARE PROVIDER (PCP) Prescriptions Metronidazole* (Flagyl*) 500 Mg Tablet 1 TAB PO Q12H for 7 Days, #14 TAB Prov: SUSANNE LEHMAN NP 08/26/25 Fluconazole (Diflucan) 150 Mg Tablet 1 TAB PO ONCE for 1 Day, #1 TAB Prov: SUSANNE LEHMAN NP 08/26/25 Doxycycline Hyclate (Doxycycline Hyclate) 100 Mg Capsule 1 CAP PO Q12H for 10 Days, #20 CAP Prov: SUSANNE LEHMAN NP 08/26/25 Education Educated: Patient Educated regarding: diagnosis, treatment, prognosis, need for follow up Additional Comment Additional Comment Pelvic exam was performed because the patient had requested male provider to pelvic examination. It was done in the presence of ASHLEIGH Moreno as a patient care nursing assistant. The examination revealed normal female genitalia without any lesions, excoriations, bleeding, or herpetiform lesions. Speculum examination showed well rugated vagina, there is some wright discharge. Normal cervix, closed, no b leeding. Bimanual examination revealed right adnexal tenderness reproducing the patient's chief complaint. Signature Scribe Signature: x Attestation: The note accurately reflects work and decisions made by me.Susanne Serra NP 08/26/25 10:51 SUSANNE LEHMAN NP Aug 26, 2025 10:04 JOANA EMERY DO Aug 26, 2025 11:31
--- NOTE | 2025-08-26 10:22 | ELECTROCARDIOGRAPH REPORT ---
[facility] Test Date: 2025-08-26 Test Time: 10:19:33 Pat Name: MELANIE VARELA Department: [facility]-ER Patient ID: [id number] Room: Gender: F [employer] Bon[employer]: : 1995 Requested By: VIPIN LEHMAN Order Number: [id number] Reading MD: Dr. HILARY Borges Measurements Intervals [place] Rate: 100 P: 62 CT: 126 QRS: 64 QRSD: 81 T: 37 QT: 353 QTc: 456 Interpretive Statements Sinus tachycardia Electronically Signed On 08-27-2025 16:52:[address] HILARY Borges Please click the below link to view image of tracing.
[2025-08-26 10:44] LABS: MEAN PLATELET VOLUME 6.9 FL (7.4-10.4); RED CELL DISTRIBUTION WIDTH 15.6 % (11.5-14.5)
[2025-08-26 11:05] LABS: URINE HCG NEGATIVE (NEG)
[2025-08-26 11:06] LABS: LEUKOCYTE ESTERASE ,URINE NEGATIVE (Neg); NITRITES, URINE NEGATIVE (Neg); OCCULT BLOOD,URINE NEGATIVE (Neg)
--- NOTE | 2025-08-26 11:09 | RADIOLOGY REPORT ---
INDICATION: pain TECHNIQUE: Multiple real-time grayscale transabdominal and TV sonographic images along with color and duplex Doppler of the uterus and ovaries were obtained. COMPARISON: US ULTRASOUND PELVIS W/ORWO DPLX on DOS: 08/25/25 FINDINGS: The uterus measures 6 x 3 x 5 cm. The endometrial stripe measures 0.8 cm. The right ovary measures 2 x 2 x 2 cm. The left ovary measures 4 x 2 x 3 cm. 2 cm left ovarian cyst. Subsequent color and duplex Doppler interrogation of the ovaries demonstrated symmetric vascular flow to both ovaries, though this does not exclude the possibility of torsion due to the dual blood supply. IMPRESSION: 1. Grossly unremarkable pelvic ultrasound.
[2025-08-26 11:12] LABS: CREATININE 0.69 MG/DL (0.40-0.90); TOTAL CARBON DIOXIDE 23.6 MMOL/L (24-32); eCRCL 94 ML/MIN; eGFR > 90 ML/MIN
[2025-08-26 11:18] LABS: UA COLLECTION TYPE NON-SPECIFIED
[2025-08-26 11:25] LABS: SQUAMOUS EPITHELIAL CELL,UR FEW /LPF (FEW); URINE AMPHETAMINE SCREEN NEGATIVE (Neg); URINE BARBITUATE SCREEN NEGATIVE (Neg); URINE BENZODIAZEPINES SCREEN NEGATIVE (Neg); URINE CANNABINOID SCREEN POSITIVE (Neg); URINE COCAINE SCREEN NEGATIVE (Neg); URINE METHADONE SCREEN NEGATIVE (Neg); URINE OPIATE SCREEN NEGATIVE (Neg); URINE PHENCYCLIDINE SCREEN NEGATIVE (Neg)
[2025-08-26] MEDS ORDERED: DOXY-1 PO (11:38)
[2025-08-26] MEDS ORDERED: FLUC150T22 PO (11:45)
[2025-08-26] MEDS ORDERED: METR-159 PO (11:45)
[2025-08-26 12:00] LABS: SYPHILIS SCREENING TEST POC NEGATIVE (Negative)
[2025-08-26] MEDS: CefTRIAXone 500MG IM Kit w/LIDOcaine IM ONE (12:01)
[2025-08-26 12:20] VITALS: BP 142/87; PULSE 82; RESP 16; O2SAT 95
== END 2025-08-26 12:22 | disposition home or self-care (01) ==
LOC: ER 08:56
DX: N89.8 Other specified noninflammatory disorders of vagina (principal); N83.202 Unspecified ovarian cyst, left side; J45.909 Unspecified asthma, uncomplicated; I48.91 Unspecified atrial fibrillation; Z88.2 Allergy status to sulfonamides; Z88.8 Allergy status to other drugs, medicaments and biological substances; Z79.899 Other long term (current) drug therapy
CPT/HCPCS: 36415; 76856; 80048; 80076; 80305; 81001; 81025; 83690; 84484; 85025; 87491; 87591; 93005; 93976; 99284; Q0112

== ENCOUNTER 2025-08-26 15:03 | Emergency (ER) | payer MEDICAID ==
[~2025-08-26] VITALS: Ht 154.9 cm; Wt 69.2 kg
[~2025-08-26 15:03] MED LIST changes: +DOXY-1 PO; +FLUC150T22 PO; +METR-159 PO
[2025-08-26 15:06] VITALS: BP 141/84; PULSE 82; RESP 16; TEMP 96.3; O2SAT 100
--- NOTE | 2025-08-26 15:12 | Physician Documentation ---
History of Present Illness ~ General Chief Complaint: See Chief Complaint Stated Complaint: MICK EVANDREA History of Present Illness Initial Comments This is a 29-year-old female who was last seen in this emergency department this morning. She now returns per ambulance. This is examined sitting in the wheelchair. She is difficult to awaken, but once awakened states "Transfer me to [facility] right now. When asked to walk to triage room patient states, "Fuck you." She had a full workup earlier today with no emergent condition identified. She will be discharged from triage. Medication Reconciliation Allergies: Coded Allergies: Sulfa (Sulfonamide Antibiotics) (Unverified Allergy, Unknown, 08/26/25) nitrofurantoin (Verified Allergy, Unknown, 08/26/25) sulfamethoxazole (Verified Allergy, Unknown, 08/26/25) trimethoprim (Verified Allergy, Unknown, 08/26/25) Scheduled Azithromycin (Zithromax), 1 TAB PO DAILY Cephalexin*Monohydrate* (Keflex*), 1 CAP PO Q12H Doxycycline Hyclate (Doxycycline Hyclate), 1 CAP PO Q12H Fluconazole (Diflucan), 1 TAB PO ONCE Metronidazole* (Flagyl*), 1 TAB PO Q12H Scheduled PRN ONDANSETRON ODT 4mg tablet (Ondansetron Odt), 1 TABLET PO Q6H PRN for nausea/vomiting Past Medical History Past Medical History: Asthma Alcohol Use: None Drug Use: none Review of Systems ROS As stated above in the HPI, otherwise all systems are reviewed and negative. Physical Exam Physical Exam Vital Signs: Temperature: 96.3, Source: Temporal, Heart Rate: 82, Respiratory Rate: 16, BP: 141/84, Pulse Oximetry: 100, Weight: 69.200 Physical Exam General: Sleepy, but arousable and is then verbal and aggressive, yelling. Respiratory: No distress, normal effort. Psychiatric: Uncooperative, yells when asked to stand and walk. Skin: Normal color, warm and dry. No edema, no ecchymosis. Progress Results/Orders Results/Orders Vital Signs 08/26/25 15:06 Temp 96.3 Pulse 82 Resp 16 B/P (MAP) 141/84 Pulse Ox 100 Medical Decision Making Additional information obtaine: old records Findings Was seen in this ER earlier today and several times yesterday. Differential Diagnosis Patient fully evaluated earlier today. Labs normal. No emergent condition identified. Returns with vague complaints and demands transfer to [facility]. Uncooperative on exam. Departure Time of Disposition: 16:04 Disposition: 01 HOME / SELF CARE / HOMELESS Impression: Primary Impression: General medical exam Condition: Stable Discharge Instructions: General Discharge Instructions Additional Instructions: You were fully evaluated earlier today and had overall normal labs. You are appropriate for outpatient followup with your primary care. Return for emergent issues. Referrals: NO PRIMARY CARE PROVIDER (PCP) Education Educated: Patient Educated regarding: diagnosis, treatment, prognosis, need for follow up Signature Scribe Signature: x Attestation: The note accurately reflects work and decisions made by me.Vipin Serra NP 08/26/25 16:06 VIPIN LEHMAN NP Aug 26, 2025 15:12
== END 2025-08-26 16:16 | disposition home or self-care (01) ==
LOC: ER 15:04
DX: Z00.00 Encounter for general adult medical examination without abnormal findings (principal); J45.909 Unspecified asthma, uncomplicated; Z88.1 Allergy status to other antibiotic agents; Z88.2 Allergy status to sulfonamides; Z88.3 Allergy status to other anti-infective agents
CPT/HCPCS: 99283

== ENCOUNTER 2025-09-04 04:50 | Emergency (ER) | payer MEDICAID ==
[~2025-09-04] VITALS: Ht 157.5 cm; Wt 63.8 kg
[~2025-09-04 04:50] MED LIST changes: -FLUC150T22 PO; -METR-159 PO
--- NOTE | 2025-09-04 07:00 | Physician Documentation ---
History of Present Illness ~ General Chief Complaint: Abdominal Pain Stated Complaint: ABDOMINAL PAIN Time Seen by MD: 06:18 Source: old records Mode of Arrival: POV, Ambulatory History of Present Illness Initial Comments Patient apparently had a complaint of suprapubic pain going on for a month, when she presented at triage. A review of the record shows that the patient has been here 9 times in the last four weeks with multiple different complaints, was seen 3 times alone on August 26, ultimately was seen by the nurse practitioner who did a complete workup for her pelvic discomfort and vaginal discharge. At that visit the patient underwent a pelvic ultrasound which was negative for any findings except for a benign-appearing 2 cm left ovarian cyst. test was negative. WILFREDO prep was negative, GC, chlamydia, and syphilis ultimately were negative. She was treated empirically with Rocephin here, discharged on doxy, Flagyl, and Diflucan. Patient per chart has a history of depression, anxiety, and bipolar disorder. On my arrival to the room, when I asked the patient what brought her in, she reported that the man has my permission. By this I believe she means that the nurse who were seeing her prior to shift change told her she was going to have blood work done. The patient is now not telling me anything, tells me that I am not the law, and that I can not make her tell me why she came to the hospital. I explained to the patient that I was the physician and that if she wanted to seek medical care then I would be the one to help her. Patient refused to let me examine her, and refused to let me or the nurse draw her blood. By report, the patient has always been with a milling planer operator from apparently a [facility] where she lives, on previous visits. Today she is alone. Well-appearing and has no voiced complaints today. Prior hx of 5150 psychiatric hold and possible suicidal ideation/intent, but no information available about pt's potential psychiatric diagnoses. Medication Reconciliation Allergies: Coded Allergies: Sulfa (Sulfonamide Antibiotics) (Unverified Allergy, Unknown, 08/26/25) nitrofurantoin (Verified Allergy, Unknown, 08/26/25) sulfamethoxazole (Verified Allergy, Unknown, 08/26/25) trimethoprim (Verified Allergy, Unknown, 08/26/25) Scheduled Azithromycin (Zithromax), 1 TAB PO DAILY Doxycycline Hyclate (Doxycycline Hyclate), 1 CAP PO Q12H Scheduled PRN ONDANSETRON ODT 4mg tablet (Ondansetron Odt), 1 TABLET PO Q6H PRN for nausea/vomiting Discontinued Medications Cephalexin*Monohydrate* (Keflex*), 1 CAP PO Q12H Discontinued Reason: Auto Discontinued Metronidazole* (Flagyl*), 1 TAB PO Q12H Discontinued Reason: Auto Discontinued Past Medical History Past Medical History: Asthma, *PSYCH* (Unspecified mental health problems, prior 5150) Smoking Status: Current every day smoker Alcohol Use: None Drug Use: none Unable to obtain complete PMH: other (Patient uncooperative with examination and interview, information here is from prior charts) Review of Systems Unable to obtain complete ROS: other (Uncooperative) Physical Exam Physical Exam Vital Signs: Temperature: 98.1, Source: Temporal, Heart Rate: 97, Respiratory Rate: 14, BP: 110/71, Pulse Oximetry: 100, Weight: 63.800 Oxygen Flow Rate: 0 Physical Exam General: Pt is awake, alert, makes good eye contact, speech clear, oriented to [facility], refuses to answer questions about time or season. Head: Normocephalic and atraumatic. Eyes: Conjunctiva normal. ENT: Mucous membranes moist. Neck: Supple. Chest: Refused Cardiac: Refused Abd: Refused Extremities: Within normal limits without cyanosis or edema. Skin: [place], warm and dry with no significant rash appreciated. Neuro: Cranial nerves II-XII grossly intact. The gait is normal. Progress Results/Orders Results/Orders Orders - BJ ANTHONY MD Med Rec (09/04/25 07:26) 1799.11 (09/04/25 07:26) Close Observation Level (09/04/25 07:26) Covid19 Binax Poc Result Entry (09/04/25 07:26) Regular Diet (09/04/25 Lunch) Completed Orders - BJ ANTHONY MD Cbc/Diff (09/04/25 07:26) Hcg, Ur Ql (09/04/25 07:26) Drug Screen, Urine (09/04/25 07:26) Ethanol (09/04/25 07:26) TSH (09/04/25 07:26) BMP (09/04/25 07:26) Vital Signs 09/04/25 09/04/25 09/04/25 09/04/25 05:11 06:03 06:29 09:35 Temp 98.1 98.4 Pulse 96 97 Resp 17 18 14 B/P (MAP) 119/86 110/71 (84) Pulse Ox 98 100 O2 Flow Rate 0 09/04/25 09/04/25 09/04/25 09/05/25 17:22 17:25 18:48 04:53 Temp 98.6 98.3 Pulse 76 74 Resp 16 16 B/P (MAP) 129/78 (95) 122/63 (82) Pulse Ox 100 98 O2 Flow Rate 0 09/05/25 07:50 Resp 16 B/P (MAP) Laboratory Tests Test 09/04/25 07:36 09/04/25 07:47 09/04/25 09:30 White Blood Count 7.7 Red Blood Count 4.38 Hemoglobin 13.6 Hematocrit 40.2 Mean Corpuscular Volume 91.9 Mean Corpuscular Hemoglobin 31.1 H Mean Corpuscular Hemoglobin Concent 33.8 Red Cell Distribution Width 14.8 H Platelet Count 380 Mean Platelet Volume 7.2 L Neutrophils (%) (Auto) 73.3 Lymphocytes (%) (Auto) 19.1 L Monocytes (%) (Auto) 5.4 Eosinophils (%) (Auto) 1.1 Basophils (%) (Auto) 1.1 H Neutrophils # (Auto) 5.6 Lymphocytes # (Auto) 1.5 Monocytes # (Auto) 0.4 Eosinophils # (Auto) 0.1 Basophils # (Auto) 0.1 CBC Comment Sodium Level 139 Potassium Level 3.4 L Chloride Level 105 Carbon Dioxide Level 24.5 Anion Gap 10 Blood Urea Nitrogen 13 Creatinine 0.53 Estimated GFR/1.73 m2 > 90 BUN/Creatinine Ratio 24.5 H Glucose Level 81 Calcium Level 8.7 Albumin 3.5 Thyroid Stimulating Hormone (TSH) 0.75 Chemistry Comments Ethyl Alcohol Level < 10 Urine HCG, Qualitative Negative Urine Opiates Screen Negative Urine Methadone Screen Negative Urine Fentanyl Screen Negative Urine Barbiturates Screen Negative Urine Phencyclidine Screen Negative Urine Amphetamines Screen Negative Urine Benzodiazepines Screen Negative Urine Cocaine Screen Negative Urine Cannabinoids Screen Positive Drug Screen Comment SARS-CoV-2 Antigen (Rapid) Negative Re-Evaluation Re-Evaluation #1: Re-Evaluation Time: 07:00 Progress It was represented to the patient that the nurse has gone home for the night, and that he will not be able to help her. Explained to the patient that we are going to place her on a 1799 hold and that blood work would need to be drawn. She will allow a male to draw her blood. Re-Evaluation #2: Re-Evaluation Time: 08:56 Progress Pt has allowed for blood draw and urine collection. Continues to make oblique statements, unable/unwilling to give any history, unable to contract for safety or demonstrate to obtain snf/food. Placed on 1799 hold for her safety and is medically cleared for psychiatric evaluation and management. No acute medical condition present. Medical Decision Making Additional information obtaine: old records Findings Differential Diagnosis See progress note Departure Time of Disposition: 08:59 [facility]: [facility] Impression: Primary Impression: Grave disability Condition: Stable Referrals: NO PRIMARY CARE PROVIDER (PCP) Education Educated: Patient Educated regarding: diagnosis, treatment Signature Scribe Signature: Attestation: Addendum Pt signed out to me as part of their psychiatric ED evaluation. Pt resting well. Vital signs within expected ranges. Brief Physical Examination: Alert and appropriately oriented. No signs of respiratory distress. Able to ambulate and move all extremities. Medical evaluation does not indicate metabolic derangement. Awaiting final disposition. Though possibly present, patient's symptoms are more consistent with psychiatric concerns than syndromes related to recreational drug use. No evidence of DT's while in the ED during my shift. Ambulating without difficulty. Speaking in full sentences. Easily arousable and interactive. Hemodynamically stable. The patient is currently awaiting Behavioral Health final evaluation and disposi tion. BJ ANTHONY MD Sep 04, 2025 07:00 SULTANA ELIZALDE MD Sep 05, 2025 06:14
[2025-09-04 08:08] LABS: MEAN PLATELET VOLUME 7.2 FL (7.4-10.4); RED CELL DISTRIBUTION WIDTH 14.8 % (11.5-14.5)
[2025-09-04 08:29] LABS: URINE HCG NEGATIVE (NEG)
[2025-09-04 08:36] LABS: URINE AMPHETAMINE SCREEN NEGATIVE (Neg); URINE BARBITUATE SCREEN NEGATIVE (Neg); URINE BENZODIAZEPINES SCREEN NEGATIVE (Neg); URINE CANNABINOID SCREEN POSITIVE (Neg); URINE COCAINE SCREEN NEGATIVE (Neg); URINE METHADONE SCREEN NEGATIVE (Neg); URINE OPIATE SCREEN NEGATIVE (Neg); URINE PHENCYCLIDINE SCREEN NEGATIVE (Neg)
[2025-09-04 08:47] LABS: CREATININE 0.53 MG/DL (0.40-0.90); ETHANOL < 10 MG/DL (<10); TOTAL CARBON DIOXIDE 24.5 MMOL/L (24-32); eCRCL 122 ML/MIN; eGFR > 90 ML/MIN
[2025-09-05 04:53] VITALS: BP 122/63; PULSE 74; TEMP 98.3; O2SAT 98
[2025-09-05 07:50] VITALS: RESP 16
== END 2025-09-05 14:10 ==
LOC: ER 04:51
DX: Z73.6 Limitation of activities due to disability (principal); R10.24 Suprapubic pain; F31.9 Bipolar disorder, unspecified; J45.909 Unspecified asthma, uncomplicated; F17.200 Nicotine dependence, unspecified, uncomplicated; Z88.1 Allergy status to other antibiotic agents; Z88.2 Allergy status to sulfonamides; Z20.822 Contact with and (suspected) exposure to COVID-19; Z79.899 Other long term (current) drug therapy
CPT/HCPCS: 36415; 80048; 80305; 80320; 81025; 84443; 85025; 87811; 99285